=== PATIENT | female | born 1945 | race Caucasian/White ===

== ENCOUNTER 2019-12-01 12:22 | Emergency (ER) | payer MEDICAID, OTHER ==
[~2019-12-01] VITALS: Ht 162.6 cm; Wt 46.3 kg
[2019-12-01] MEDS ORDERED: IV NORMAL SALINE 1000 ML BAG IV ONE (12:30)
[2019-12-01] MEDS ORDERED: LEVO125T PO (12:36)
--- NOTE | 2019-12-01 12:40 | NUR ---
Dr. Chapman at the bedside for MSE.
[2019-12-01] MEDS ORDERED: DEXTROSE 50% 50 ML DISP.SYRIN ONE ×2 (13:00→15:52)
[2019-12-01] MEDS ORDERED: DEXTROSE 50% 50 ML DISP.SYRIN IV ONE ×2 (13:00→15:45)
[2019-12-01 13:08] LABS: EOSINOPHILS % (AUTO) 0.1 % (0.0-7.0); HEMOGLOBIN 13.7 g/dL (10.9-14.3); MONOCYTES # (AUTO) 0.1 K/uL (2.0-10.0); RED BLOOD CELL COUNT(AUTO) 4.16 MIL/uL (3.63-4.92)
[2019-12-01 13:11] LABS: CREATININE 0.7 mg/dL (0.6-1.3); POTASSIUM 3.9 mmol/L (3.5-5.1)
[2019-12-01 13:12] LABS: BASOPHILS % (AUTO) 2.1 % (0.0-2.0); HEMATOCRIT 41.4 % (31.2-41.9); LYMPHOCYTES # (AUTO) 0.7 K/uL (20.0-40.0); LYMPHOCYTES % (AUTO) 35.5 % (20.5-51.5); MEAN CORPUSCULAR HGB CONC 33 g/dL (32.3-35.6); MEAN CORPUSCULAR VOLUME 99.5 fL (75.5-95.3); MONOCYTES % (AUTO) 6.3 % (0.0-11.0); PLATELET COUNT (AUTO) 165 K/uL (179-408)
[2019-12-01 13:13] LABS: MAGNESIUM 2.2 mg/dL (1.8-2.4); PHOSPHOROUS 2.4 mg/dL (2.5-4.9)
[2019-12-01 13:16] LABS: BILIRUBIN,DIRECT 0.3 mg/dL (0.0-0.2); BILIRUBIN,TOTAL 1.7 mg/dL (0.2-1.0); TOTAL PROTEIN, SERUM 6.6 g/dL (6.4-8.2)
[2019-12-01 13:19] LABS: WHITE BLOOD COUNT (AUTO) 1.9 K/uL (3.8-11.8)
--- NOTE | 2019-12-01 13:28 | NUR ---
Pt refusing CT head. Explained and educated pt regarding possible stroke symptoms. Pt still continued to refuse. aware.
[2019-12-01] MEDS: CEFTRIAXONE 1 G in IV DEXTROSE 5% 50 ML IV ONE ×2 (13:30→13:43)
[2019-12-01 13:36] LABS: THYROID STIMULATING HORMONE 7.021 mIU/mL (0.358-3.740)
[2019-12-01] MEDS ORDERED: CEFTRIAXONE 1 G VIAL ONE (13:41)
[2019-12-01 13:43] LABS: LYMPHOCYTES % (MANUAL) 36 % (20-40); MONOCYTES % (MANUAL) 5 % (2-10); NEUTROPHILS % (MANUAL) 59 % (42-75)
[2019-12-01 14:29] LABS: *BILIRUBIN,URIN NEGATIVE (NEGATIVE); *BLOOD, URINE 1+ (NEGATIVE); *CLARITY,URINE CLOUDY (CLEAR); *COLOR,URINE YELLOW (YELLOW); *KETONES,URINE 1+ (NEGATIVE); *UROBILINOGEN,URINE 0.2 E.U./dl (NORMAL); LEUKOCYTE ESTERASE ,URINE NEGATIVE (NEGATIVE); NITRITE, URINE NEGATIVE (NEGATIVE); PH,URINE 8.5 (5.0-8.0); UGLUCOSE NEGATIVE (NEGATIVE)
--- NOTE | 2019-12-01 14:35 | NUR ---
BS rechecked noted to be 49. MD made aware. IVF D51/2NS at 50ml/hr to be started per MD with hourly blood sugar checks. BS to be reassessed in one hour.
[2019-12-01] MEDS ORDERED: DEXTROSE 5 %-0.45 % NACL 500 ML IV.SOLN IV ONE (14:45)
[2019-12-01 14:55] LABS: MUCUS,URINE MANY /LPF (0-FEW); SQUAMOUS EPITHELIAL CELL,UR MODERATE /HPF (NONE SEEN); URINE AMORPHOUS PHOSPHATES MANY /HPF; WBC,URINE 0-3 /HPF (0-3)
--- NOTE | 2019-12-01 15:44 | NUR ---
BS rechecked and still noted to be 49. MD made aware. To increase IVF to D51/2NS at 75 ml/hr per MD and one time dose of IV D50.
--- NOTE | 2019-12-01 16:22 | NUR ---
[facility] called. P/u for 1715 with [facility] ambulance [facility]. for report. Accepting MD Dr. Keely Perez.
--- NOTE | 2019-12-01 16:36 | NUR ---
FOOD TRAY WAS SENT TO PT's ROOM AND OFFERED TO THE PT. PT REFUSED FOOD. DR GALEANA NOTIFIED.
--- NOTE | 2019-12-01 17:05 | NUR ---
Full telephone SBAR report given to LUDMILA Alexandra from [facility] .
--- NOTE | 2019-12-01 17:12 | NUR ---
Blood sugar reassessed: 149. MD aware and notified.
--- NOTE | 2019-12-01 17:48 | NUR ---
Pt discharged from ER to [facility]. Full SBAR report given ambulance. Pt stable and nad noted upon discharge.
== END 2019-12-01 17:50 | disposition short-term general hospital (02) ==
LOC: ER 12:22
DX: R55 Syncope and collapse (principal); R00.1 Bradycardia, unspecified; E11.649 Type 2 diabetes mellitus with hypoglycemia without coma; E03.9 Hypothyroidism, unspecified; Z79.890 Hormone replacement therapy; Z91.19 Patient's noncompliance with other medical treatment and regimen; E83.39 Other disorders of phosphorus metabolism; D72.819 Decreased white blood cell count, unspecified
CPT/HCPCS: 36415; 71045; 80048; 80076; 81001; 82550; 82962 ×5; 83036; 83735; 83930; 84100; 84439; 84443; 84484; 85025; 93005; 96360; 99291; J0696; J3490 ×3; J7060; 70030-TC; J7030

== ENCOUNTER 2020-07-08 10:27 | Emergency (ER) | payer OTHER ==
[~2020-07-08] VITALS: Ht 162.6 cm; Wt 49.0 kg
[~2020-07-08 10:27] MED LIST: LEVO125T PO
[2020-07-08] MEDS ORDERED: IV NORMAL SALINE 1000 ML BAG IV ONE (11:15)
--- NOTE | 2020-07-08 11:26 | NUR ---
Pt out of ER for CT.
[2020-07-08 11:28] LABS: CARBON DIOXIDE 28 mmol/L (21-32); CHLORIDE 104 mmol/L (98-107); CREATININE 0.5 mg/dL (0.6-1.3); GLUCOSE 102 mg/dL (74-106); POTASSIUM 4.4 mmol/L (3.5-5.1); UREA NITROGEN, BLOOD 33 mg/dL (7-18)
[2020-07-08 11:42] LABS: ALANINE AMINOTRANSFERASE 33 U/L (14-59); ALKALINE PHOSPHATASE 94 U/L (50-136); ASPARTATE AMINOTRANSFERASE 19 U/L (15-37); BILIRUBIN,DIRECT 0.1 mg/dL (0.0-0.2); BILIRUBIN,TOTAL 0.5 mg/dL (0.2-1.0)
[2020-07-08 11:47] LABS: BASOPHILS % (AUTO) 0.9 % (0.0-2.0); HEMATOCRIT 32.7 % (31.2-41.9); HEMOGLOBIN 10.7 g/dL (10.9-14.3); LYMPHOCYTES # (AUTO) 0.7 K/uL (20.0-40.0); LYMPHOCYTES % (AUTO) 27.2 % (20.5-51.5); MEAN CORPUSCULAR HEMOGLOBIN 32.6 uug (24.7-32.8); MEAN CORPUSCULAR HGB CONC 33 g/dL (32.3-35.6); MEAN CORPUSCULAR VOLUME 99.4 fL (75.5-95.3); MONOCYTES # (AUTO) 0.2 K/uL (2.0-10.0); MONOCYTES % (AUTO) 8.9 % (0.0-11.0); NEUTROPHILS # (AUTO) 1.6 K/uL (1.8-8.9); PLATELET COUNT (AUTO) 226 K/uL (179-408); RED BLOOD CELL COUNT(AUTO) 3.29 MIL/uL (3.63-4.92); WHITE BLOOD COUNT (AUTO) 2.5 K/uL (3.8-11.8)
--- NOTE | 2020-07-08 11:50 | NUR ---
Pt back from Ct. Swab for COVID collected and sent to LAB.
[2020-07-08] MEDS ORDERED: ACETAMINOPHEN ES 500 MG TABLET PO ONE (12:00)
[2020-07-08 12:18] LABS: *BILIRUBIN,URIN NEGATIVE (NEGATIVE); *BLOOD, URINE 1+ (NEGATIVE); *COLOR,URINE YELLOW (YELLOW); *KETONES,URINE NEGATIVE (NEGATIVE); *UROBILINOGEN,URINE 0.2 E.U./dl (NORMAL); LEUKOCYTE ESTERASE ,URINE NEGATIVE (NEGATIVE); NITRITE, URINE NEGATIVE (NEGATIVE); UGLUCOSE NEGATIVE (NEGATIVE)
[2020-07-08 12:20] LABS: *CLARITY,URINE SLIGHTLY CLOUDY (CLEAR)
[2020-07-08] MEDS ORDERED: ACETAMINOPHEN ES 500 MG TABLET ONE (12:27)
--- NOTE | 2020-07-08 13:06 | NUR ---
Offered lunch tray, pt refused. Provided crakers for lunch per pt request.
--- NOTE | 2020-07-08 13:14 | NUR ---
Spoke to Calin from [facility], Clinicals given, awaiting for Dr to
--- NOTE | 2020-07-08 13:45 | NUR ---
Dr Roberson spoke to DR NIX from [facility]. Pt to be transfered to [facility], awaiting transfer info.
--- NOTE | 2020-07-08 15:01 | NUR ---
Patient is resting comfortably in bed with eyes closed, NAD noted.
--- NOTE | 2020-07-08 15:10 | NUR ---
EARNESTINE MARTINEZ spoke to [facility].
--- NOTE | 2020-07-08 17:14 | NUR ---
Report given to transfering soil technologist, IV and F/C removed. Pt left Er in stable condition, all belongings sent / Pt.
[2020-07-08 17:15] VITALS: BP 105/59
[2020-07-08 17:19] LABS: BACTERIA,URINE FEW /HPF (NONE SEEN); WBC,URINE 0-3 /HPF (0-3)
[2020-07-08 17:20] LABS: SQUAMOUS EPITHELIAL CELL,UR FEW /HPF (NONE SEEN)
[2020-07-08 17:43] LABS: LYMPHOCYTES % (MANUAL) 30 % (20-40); MONOCYTES % (MANUAL) 7 % (2-10); NEUTROPHILS % (MANUAL) 63 % (42-75)
== END 2020-07-08 17:16 | disposition short-term general hospital (02) ==
LOC: ER 10:27
DX: R42 Dizziness and giddiness (principal); E03.9 Hypothyroidism, unspecified; R00.1 Bradycardia, unspecified; D72.819 Decreased white blood cell count, unspecified; Z79.890 Hormone replacement therapy; R51.9 Headache, unspecified; E11.9 Type 2 diabetes mellitus without complications; Z20.828 Contact with and (suspected) exposure to other viral communicable diseases
CPT/HCPCS: 36415; 51702; 70030-TC; 70450; 71045; 84443; 85025; 85730; 93005; A4663; A9150; J7030